=== PATIENT | female | born 1985 | race Two or more races ===

== ENCOUNTER 2024-10-01 07:52 | Emergency (ER) | payer MEDICAID, SELFPAY ==
[2024-10-01 07:55] VITALS: BMI 26.6
[2024-10-01 08:31] VITALS: BP 113/79; PULSE 79; RESP 16; TEMP 37.1; O2SAT 99
--- NOTE | 2024-10-01 08:34 | PD.EDURI ---
Upper Respiratory Inf. RME/HPI General Chief Complaint: Flu Like Symptoms Stated Complaint: CHEST PAIN,COUGH, SORE THROAT, HEADACHE, EARS PAIN Arrival date/time: 10/01/24 07:52 RME / HPI RME / HPI Narrative: This section includes all my notes and documentations, including HPI, PE, and ED course.? Chaka Horvath MD HPI: 39 year old female presents to the ED for complaint of headache, cough, chest pain, sore throat, body aches, ear ache, and headache for about a week, worse in the past couple of days. Reports the chest pain is aggravated with coughing and located across her chest without radiation. Denies any sick contacts. No other complaints. ROS: All negative except as documented in HPI. Physical Exam: General:? Alert and oriented.? Hacking cough noted. Eyes:? Conjunctivae and lids clear.? ENT:? No nasal congestion.??Pharynx normal. TM normal bilaterally. Neck:? Supple.? Heart:? RRR.? Lungs:? No respiratory distress.? Good air movement with bilateral rhonchi. Abdomen:? Soft and nontender.?? Legs:? No clubbing, cyanosis, edema.? Skin:? Warm and dry.?? Neuro:? Alert and oriented X 3.?? I reviewed all diagnostic test results. My interpretation of the chest x-ray is increased bronchial markings. COVID/influenza/strep negative. At this point, diagnoses include?lower respiratory infection. Treatment here included?tylenol with codeine and duoneb treatment. Significant improvement noted. Recommended a trial of outpatient treatment. Based on my best medical judgment, made decision no further evaluation or treatment indicated at this time.? Patient understands and agrees to the discharge instructions customized and printed, see below. Discharge instructions from Dr. Horvath: --No physical exertion for 3 days to help rest the lungs. ?-No smoking or exposure to smoking or pets or dust or cold or humidity. --Augmentin to kill the germs causing the bronchitis. --Prednisone to help decrease the swelling in the airways. --Albuterol 2 puffs every 4-6 hours for 24 hours to help keep the airways open. Then as needed for cough or shortness of breath. --See a private doctor next week if not completely better. --Seek immediate medical care with worsening or with any concerns. Instrucciones de mikayla del Dr. Horvath: --No hacer ericka?n esfuerzo f?sico power 3 d?as para ayudar a que los pulmones descansen. --No fumar ni exponerse al humo del tabaco, a las mascotas, al polvo, al fr?o o a la humedad. --Augmentin para matar los g?rmenes que causan la bronquitis. --Prednisona para ayudar a disminuir la hinchaz?n de las v?as respiratorias. --Albuterol 2 inhalaciones cada 4-6 horas power 24 horas para ayudar a mantener abiertas las v?as respiratorias. Luego, seg?n sea necesario, en carolina de tos o falta de aire. --Consulte a un m?dico privado la pr?xima semana si no mejora por completo. --Busque atenci?n m?dica inmediata si la enfermedad empeora o tiene alguna inquietud. Related Data Home Medications ?Medication ?Instructions ?Recorded ?Confirmed labetalol 100 mg tablet 100 mg PO TID 06/30/18 03/22/22 vit,calcium 128-iron fum 1 tab PO QDAY 02/07/22 03/28/22 28 mg iron-folic acid 800 mcg tablet Previous Rx's ?Medication ?Instructions ?Recorded cyclobenzaprine 10 mg tablet 10 mg PO TID PRN muscle spasm #30 09/08/23 tabs albuterol sulfate 90 mcg/actuation 2 inh inhalation QID PRN shortness 10/01/24 aerosol inhaler of breath or wheezing #8.5 grams amoxicillin 875 mg-potassium 1 tab PO BID #10 tabs 10/01/24 clavulanate 125 mg tablet prednisone 20 mg tablet 40 mg PO DAILY 3 days #6 tabs 10/01/24 Allergies Allergy/AdvReac Type Severity Reaction Status Date / Time aspirin Allergy Intermediate Difficulty Verified 10/01/24 07:54 Breathing Review of Systems Review of Systems Systems Reviewed: All systems reviewed, normal except as documented Past Medical History Past Medical History CARDIAC: Positive Cardiac Disorders, Hypercholesterolemia and Hypertension RESPIRATORY: Positive Bronchitis and Pneumonia ENDOCRINE: Positive Endocrine Disorders and Diabetes Mellitus Type 2 HEMATOLOGIC: Positive Blood Disorders and Anemia PSYCHO/SOCIAL: Positive Depression OTHER HISTORY: Positive Hospitalization Family History FAMILY HISTORY: Positive Family Cardiac Disorders (MOTHER:UNKNOWN, HTN FATHER:HTN) and Family Surgery (MOTHER:TUMOR) Surgical History SURGICAL: Positive Section Social History SMOKING STATUS: Never smoker ED Exam Narrative Physical exam: As noted in HPI Course Course Course Narrative: chest xray ordered to help determine etiology of chest pain. Quality Measures none Orders Category Date Time Status Bedside COVID-19 Antigen Test NOW Care 10/01/24 08:37 Active Bedside Influenza A&B Antigen Test NOW Care 10/01/24 08:38 Completed XR chest 1V Stat Exams 10/01/24 08:37 Completed Strep A Rapid Stat Lab 10/01/24 08:45 Completed ACETAMINOPHEN w/COD 300-30 [Tylenol w/Cod #3] Med 10/01/24 08:37 Discontinued 2 tab PO X1 ONE Albuterol/Ipratr Rt Jaquelin [Duoneb Rt Jaquelin] Med 10/01/24 09:07 Discontinued 3 ml INH X1 ONE Vital Signs Vital signs: Vital Signs Temperature 98.7 F 10/01/24 08:31 Pulse Rate 79 10/01/24 08:31 Respiratory Rate 16 10/01/24 08:31 Blood Pressure 113/79 10/01/24 08:31 Pulse Oximetry (%) 99 10/01/24 08:31 Oxygen Delivery Method Room Air 10/01/24 08:31 Pulse ox is 99% on room air which is adequate. Upper Respiratory Infection MDM Narrative MDM Narrative:: Angelique Lucero am scribing for and in the presence of Dr. Horvath. Patient data External records reviewed:: [facility] previous records (I reviewed ED visit on 09/08/2024 for back pain ) Clinical information provided by:: patient Social determinants that could affect healthcare access:: none Patient has the following chronic illnesses:: HTN, DM How is presenting disease/condition affected by chronic disease/condition?: uneffected by Evaluation data The following diagnostics were reviewed and interpreted by me:: lab results and radiology exam(s) Lab and/or radiology exams considered but not ordered:: None Interpretation Summary: Lower respiratory infection Medications / Prescriptions Medications or Prescriptions considered but not ordered:: None Medication administrations:: Medication Administration History Discontinued Medications Acetaminophen/Codeine Phosphate (Acetaminophen W/Cod 300-30 Tablet) 2 tab PO X1 ONE Stop: 10/01/24 08:38 Last Admin: 10/01/24 08:56 Dose: 2 tab Documented By: LISA Albuterol/Ipratropium (Albuterol/Ipratropium (Duoneb) Rt Jaquelin 3 Ml Nebu) 3 ml INH X1 ONE Stop: 10/01/24 09:08 Last Admin: 10/01/24 09:20 Dose: 3 ml Documented By: GISELA Patient given Tylenole #3 and duoneb Consultations Consultation(s) initiated? (list below): No Diagnosis Upper Respiratory Differential Diagnosis: upper respiratory infection, viral infection, bronchitis, influenza and other (Strep throat, COVID, low respiratory infection) Most likely diagnosis given after review of the tests above:: Lower respiratory infection Admission Indicated Admission indicated?: not indicated Explain why admission is indicated or not indicated:: Admission criteria not met Admission Request Was there a request for admission?: No Disposition Plan Disposition Plan: Discharge Discharge Attestation Discharge Attestation: The patient and all family members were given an opportunity to ask questions and understood the discharge instructions. Discharge instructions specifically effects, indications for sooner follow up or return to the emergency department, and the expected course of current diagnosis. Patient condition: Stable Discharge Plan Plan Patient Disposition: HOME (Self Care) Prescriptions/Referrals Prescriptions/Med Rec: New prednisone 20 mg tablet 40 mg PO DAILY 3 Days Qty: 6 0RF Taper: Prednisone Taper 20 mg DAILY for 2 Days and 0 Hour 10 mg DAILY for 2 Days and 0 Hour 5 mg DAILY for 7 Days and 0 Hour albuterol sulfate 90 mcg/actuation HFA aerosol inhaler 2 inh inhalation QID PRN (Reason: shortness of breath or wheezing) Qty: 8.5 0RF amoxicillin-pot clavulanate 875-125 mg tablet 1 tab PO BID Qty: 10 0RF No Action labetalol 100 mg Tablet 100 mg PO TID vit no.[id number] 28 mg iron- 800 mcg Tablet 1 tab PO QDAY cyclobenzaprine 10 mg tablet 10 mg PO TID PRN (Reason: muscle spasm) Qty: 30 0RF Referrals: Paula Ramos PA-C [Primary Care Provider] - In 1 week Problem List Clinical Impression: Lower respiratory infection Patient/Caregiver Discharge Instructions Discharge Activity: activity as tolerated Education Materials: ED Bronchitis with Wheezing (Adult) Additional Instructions: Discharge instructions from Dr. Horvath: --No physical exertion for 3 days to help rest the lungs. ?-No smoking or exposure to smoking or pets or dust or cold or humidity. --Augmentin to kill the germs causing the bronchitis. --Prednisone to help decrease the swelling in the airways. --Albuterol 2 puffs every 4-6 hours for 24 hours to help keep the airways open. Then as needed for cough or shortness of breath. --See a private doctor next week if not completely better. --Seek immediate medical care with worsening or with any concerns. Instrucciones de mikayla del Dr. Horvath: --No hacer ericka?n esfuerzo f?sico power 3 d?as para ayudar a que los pulmones descansen. --No fumar ni exponerse al humo del tabaco, a las mascotas, al polvo, al fr?o o a la humedad. --Augmentin para matar los g?rmenes que causan la bronquitis. --Prednisona para ayudar a disminuir la hinchaz?n de las v?as respiratorias. --Albuterol 2 inhalaciones cada 4-6 horas power 24 horas para ayudar a mantener abiertas las v?as respiratorias. Luego, seg?n sea necesario, en carolina de tos o falta de aire. --Consulte a un m?dico privado la pr?xima semana si no mejora por completo. --Busque atenci?n m?dica inmediata si la enfermedad empeora o tiene alguna inquietud. Print Language: Romanian Stand Alone Forms: Nina Award Info., Patient Portal Info Letter
--- NOTE | 2024-10-01 08:37 | XR_ITS ---
Examination: PA chest single view TECHNIQUE: Upright PA chest single view Exam date and time: September 23, 2024 0844 hours Comparison September 20, 2020 INDICATIONS: Shortness of breath today. FINDINGS: Normal heart size. Lungs are clear. The osseous structures are intact IMPRESSION: No active disease
[2024-10-01] MEDS: ACETAMINOPHEN w/COD 300-30 TABLET 2 TAB PO (08:56)
[2024-10-01 09:20] VITALS: PULSE 80; RESP 18; O2SAT 98
[2024-10-01] MEDS: ALBUTEROL/IPRATROPIUM (Duoneb) RT SOL 3 ML NEBU INH (09:20)
[2024-10-01 10:19] LABS: Strep A Rapid Negative (Negative)
== END 2024-10-01 16:05 | disposition home or self-care (01) ==
PROVIDERS: Emergency Provider Emergency Medicine; PCP Physician Assistant
DX: J22 Unspecified acute lower respiratory infection (principal)
CPT/HCPCS: 71045; 87400; 87651; 87811; 94640; 99283; A9270

== ENCOUNTER 2025-02-11 07:49 | Emergency (ER) | payer MEDICAID, SELFPAY ==
[2025-02-11 07:50] VITALS: BMI 29.2
[2025-02-11 08:21] VITALS: BP 117/88; PULSE 64; RESP 16; TEMP 36.7; O2SAT 98
--- NOTE | 2025-02-11 08:22 | PD.EDEYE ---
ED Eye Problem RME/HPI General Chief complaint: Eye Problems Stated complaint: LEFT EYE PAIN/RED/SWELLING X 2 DAYS Time Seen by Provider: 02/11/25 08:03 Source: patient Arrival date/time: 02/11/25 07:49 39-year-old female with no known medical history presents to the emergency room with a chief complaint of irritation redness and swelling to her left eye x 2 days Mode of arrival: ambulatory Limitations: no limitations Related Data Home Medications ?Medication ?Instructions ?Recorded ?Confirmed labetalol 100 mg tablet 100 mg PO TID 06/30/18 03/22/22 vit,calcium 128-iron fum 1 tab PO QDAY 02/07/22 03/28/22 28 mg iron-folic acid 800 mcg tablet Previous Rx's ?Medication ?Instructions ?Recorded cyclobenzaprine 10 mg tablet 10 mg PO TID PRN muscle spasm #30 09/08/23 tabs albuterol sulfate 90 mcg/actuation 2 inh inhalation QID PRN shortness 10/01/24 aerosol inhaler of breath or wheezing #8.5 grams amoxicillin 875 mg-potassium 1 tab PO BID #10 tabs 10/01/24 clavulanate 125 mg tablet tobramycin 0.3 % eye drops 2 drp ophthalmic (eye) Q2H #5 mL 02/11/25 Allergies Allergy/AdvReac Type Severity Reaction Status Date / Time aspirin Allergy Severe Difficulty Verified 02/11/25 07:54 Breathing Review of Systems Review of Systems Systems Reviewed: All systems reviewed, normal except as documented Constitutional Constitutional: Reports system reviewed and no additional complaints, except as documented, Denies fatigue, Denies fever(s), Denies headache(s) and Denies weakness Eyes Eyes: Reports system reviewed and no additional complaints, except as documented, Denies blurry vision, Denies change in vision, Denies decreased night vision, Denies diplopia, Denies eye discharge, Denies dry eyes, Denies exophthalmos, Denies floaters, Reports irritation, Denies itchy eyes, Denies loss of peripheral vision, Denies loss of vision, Denies other visual disturbances, Denies eye pain, Denies photophobia, Denies requires corrective lenses, Denies seeing flashes, Denies spots in vision and Denies tunnel vision ENT Ears, Nose, Mouth, and Throat: Reports system reviewed and no additional complaints, except as documented, Denies otalgia, Denies headache(s), Denies nasal congestion, Denies throat swelling and Denies vertigo Cardiovascular Cardiovascular: Reports system reviewed and no additional complaints, except as documented, Denies chest pain, Denies dyspnea and Denies dyspnea on exertion Respiratory Respiratory: Reports system reviewed and no additional complaints, except as documented, Denies chest congestion, Denies cough, Denies dyspnea, Denies dyspnea on exertion and Denies wheezing Gastrointestinal Gastrointestinal: Reports system reviewed and no additional complaints, except as documented, Denies abdominal pain, Denies cramping, Denies nausea and Denies vomiting Genitourinary Genitourinary: Reports system reviewed and no additional complaints, except as documented Musculoskeletal Musculoskeletal: Reports system reviewed and no additional complaints, except as documented and Denies back pain Integumentary/Breasts Skin/Breast: Reports system reviewed and no additional complaints, except as documented and Denies wounds Neurologic Neurologic: Reports system reviewed and no additional complaints, except as documented, Denies confusion, Denies headache(s), Denies lack of coordination, Denies loss of vision, Denies vertigo and Denies weakness Psychiatric Psychiatric: Reports system reviewed and no additional complaints, except as documented, Denies anxiety, Denies confusion, Denies depression, Denies paranoia, Denies suicidal ideation and Denies tactile hallucinations Endocrine Endocrine: Reports system reviewed and no additional complaints, except as documented and Denies fatigue Hematologic/Lymphatic Hematologic/Lymphatic: Reports system reviewed and no additional complaints, except as documented and Denies lymphadenopathy Allergic/Immunologic Allergic/Immunologic: Reports system reviewed and no additional complaints, except as documented, Denies itchy eyes, Denies throat swelling, Denies urticaria and Denies wheezing Past Medical History Past Medical History NEUROLOGIC: Negative Neurological Disorders or Seizures CARDIAC: Positive Cardiac Disorders, Hypercholesterolemia and Hypertension; Negative Congestive Heart Failure RESPIRATORY: Positive Bronchitis and Pneumonia; Negative Chronic Obstructive Pulmonary Disease (COPD) GASTROINTESTINAL: Negative Gastrointestinal Disorders GENITOURINARY: Negative Genitourinary Disorders or Renal Disease MUSCULOSKELETAL: Negative Musculoskeletal Disorders ENDOCRINE: Positive Endocrine Disorders and Diabetes Mellitus Type 2; Negative Diabetes Mellitus Type 1 HEMATOLOGIC: Positive Blood Disorders and Anemia PSYCHO/SOCIAL: Positive Depression; Negative Depression OTHER HISTORY: Positive Hospitalization; Negative Autoimmune Disease, Blood Transfusions, Blood Transfusion Reaction, Anesthesia Reactions or Cancer Family History FAMILY HISTORY: Positive Family Cardiac Disorders (MOTHER:UNKNOWN, HTN FATHER:HTN) and Family Surgery (MOTHER:TUMOR); Negative Family Psychiatric Problems, Family Respiratory Disorders, Family Gastrointestinal Problems, Family Cancer or Family Anesthesia Reaction Surgical History SURGICAL: Positive Section Social History SMOKING STATUS: Never smoker ED Exam General Limitations: Present no limitations General appearance: Present alert and in no apparent distress Head Head exam: Present atraumatic Eye Eye exam: Present normal appearance, PERRL and EOMI Expanded Eye Exam Pupils: Bilateral: regular, round and reactive Sclera/Conjunctival: left: injection, exudate and tenderness ENT ENT exam: Present normal exam, normal oropharynx and mucous membranes moist Neck Neck exam: Present normal inspection, full ROM and trachea midline Chest Chest inspection: Present normal inspection and symmetric chest wall rise Respiratory Respiratory exam: Present normal lung sounds bilaterally Cardiovascular Cardiovascular exam: Present regular rate, normal rhythm and normal heart sounds Abdominal Exam Abdominal exam: Present soft and normal bowel sounds Extremities Exam Extremities exam: Present normal inspection and full ROM Back Exam Back exam: Present normal inspection and full ROM Neurological Exam Neurological exam: Present alert, oriented X3 and CN II-XII intact Psychiatric Psychiatric exam: Present normal affect and normal mood Skin Skin exam: Present warm, dry, intact and normal color Course Quality Measures none Vital Signs Vital signs: Vital Signs Temperature 98.1 F 02/11/25 08:21 Pulse Rate 64 02/11/25 08:21 Respiratory Rate 16 02/11/25 08:21 Blood Pressure 117/88 H 02/11/25 08:21 Pulse Oximetry (%) 98 02/11/25 08:21 Oxygen Delivery Method Room Air 02/11/25 08:21 O2 saturation 98% within normal limits Eye MDM Narrative MDM Narrative:: 39-year-old female with no known medical history presents to the emergency room with a chief complaint of irritation redness and swelling to her left eye x 2 days Patient is hemodynamically stable and in no apparent distress Physical examination shows left eye erythema, exudates under the conjunctiva, injection. The findings are consistent with bacterial conjunctivitis The patient denies any other visual disturbances including spots in the vision blurry vision pain or any loss of vision Patient was discharged and educated to follow-up with primary care provider in the next 24 to 48 hours and return to the emergency room for any evidence of worsening signs or symptoms Patient data External records reviewed:: [facility] previous records Clinical information provided by:: patient Social determinants that could affect healthcare access:: none Patient has the following chronic illnesses:: No chronic illness How is presenting disease/condition affected by chronic disease/condition?: no chronic disease Evaluation data The following diagnostics were reviewed and interpreted by me:: lab results and radiology exam(s) Lab and/or radiology exams considered but not ordered:: Labs and radiology exams considered in order Interpretation Summary: N/A Medications / Prescriptions Medications or Prescriptions considered but not ordered:: Rx given Medication administrations:: Rx given Consultations Consultation(s) initiated? (list below): No Diagnosis Eye Problem Differential Diagnosis: conjunctivitis and other (Viral conjunctivitis/bacterial conjunctivitis) Most likely diagnosis given after review of the tests above:: Bacterial conjunctivitis Admission Indicated Admission indicated?: not indicated Admission Request Was there a request for admission?: No Disposition Plan Disposition Plan: Discharge Discharge Attestation Discharge Attestation: The patient and all family members were given an opportunity to ask questions and understood the discharge instructions. Discharge instructions specifically effects, indications for sooner follow up or return to the emergency department, and the expected course of current diagnosis. Patient condition: Stable Discharge Plan Plan Patient Disposition: HOME (Self Care) Discharge Disposition comment: Stable Prescriptions/Referrals Prescriptions/Med Rec: New tobramycin 0.3 % drops 2 drp ophthalmic (eye) Q2H Qty: 5 0RF No Action labetalol 100 mg Tablet 100 mg PO TID vit no.[id number] 28 mg iron- 800 mcg Tablet 1 tab PO QDAY cyclobenzaprine 10 mg tablet 10 mg PO TID PRN (Reason: muscle spasm) Qty: 30 0RF albuterol sulfate 90 mcg/actuation HFA aerosol inhaler 2 inh inhalation QID PRN (Reason: shortness of breath or wheezing) Qty: 8.5 0RF amoxicillin-pot clavulanate 875-125 mg tablet 1 tab PO BID Qty: 10 0RF Problem List Clinical Impression: Bacterial conjunctivitis Patient/Caregiver Discharge Instructions Education Materials: What Is Conjunctivitis?, ED Conjunctivitis, Bacterial Additional Instructions: Por favor, consulte con [facility]clean m?dico de cabecera en las pr?ximas 24 a 48 horas. Los antibi?ticos se env?an a [facility] farmacia; rec?jalos y t?melos seg?n lo indicado. Si observa cualquier evidencia de empeoramiento de los signos o s?ntomas, regrese a la sherrill de emergencias de inmediato. Print Language: Czech Stand Alone Forms: Nina Award Info., Work/School Release, Patient Portal Info Letter PA/STOCK CONTROL SUPERVISOR Supervising Physician PA/STOCK CONTROL SUPERVISOR Supervising Physician: Dr. Valentin
== END 2025-02-11 08:43 | disposition home or self-care (01) ==
LOC: SERX 08:37
PROVIDERS: Emergency Provider Family Medicine
DX: H10.89 Other conjunctivitis (principal)
CPT/HCPCS: 99281

== ENCOUNTER → 2025-07-08 | Outpatient (CLI) | payer MEDICAID, SELFPAY ==
--- NOTE | 2025-07-08 09:15 | XR_ITS ---
Examination: Screening digital mammography, bilateral Computer aided detection 3-D breast Tomosynthesis, bilateral Date and time of exam: 07/08/2025, 8:54 a.m. Comparisons: Baseline exam Indications: Screening Technique: Nonmagnified MLO, CC views of the breasts to been obtained, reconstructed from 3-D Tomosynthesis images. R2 computer aided detection program utilized for evaluation of suspicious masses and/or abnormal calcifications. 3-D Tomosynthesis images obtained. Technologist: Findings: The breasts are heterogeneously dense, which may obscure small masses. No evidence of abnormal masses or suspicious calcifications. Impression: BI-RADS category 1: Negative findings (within normal) Recommend 1 year follow-up mammogram
== END | disposition home or self-care (01) ==
LOC: CDIM 08:48
PROVIDERS: Referring Provider Physician Assistant; Visit Provider Physician Assistant
DX: Z12.31 Encounter for screening mammogram for malignant neoplasm of breast (principal); R92.313 Mammographic fatty tissue density, bilateral breasts
CPT/HCPCS: 77063; 77067